=== PATIENT | female | born 1940 | race Caucasian/White ===

== ENCOUNTER 2019-01-28 21:06 | Inpatient (IN) | payer MEDICARE ==
[~2019-01-28] VITALS: Ht 172.7 cm; Wt 66.1 kg
[2019-01-28] MEDS ORDERED: NITROGLYCERIN SINGLE TAB 0.4 MG SL PRN (21:30)
[2019-01-28] MEDS ORDERED: SODIUM CHLORIDE FLUSH 10ML SYR IVF ONE (21:30)
[2019-01-28] MEDS ORDERED: ASPIRIN 81 MG TABLET CHEW ONE (21:30)
[2019-01-28] MEDS ORDERED: ASPIRIN 81 MG TABLET CHEW PO ONE (21:30)
[2019-01-28] MEDS ORDERED: NITROGLYCERIN SINGLE TAB 0.4 MG SL ONE (21:30)
[2019-01-28] MEDS ORDERED: ASPI-496 PO (21:35)
--- NOTE | 2019-01-28 21:35 | NUR ---
Pt medicated with asa and 1 tab nitro for chest pain and pain radiating to left arm. Pt VSS and will cont to monitor.
[2019-01-28 21:39] LABS: MEAN CORPUSCULAR HEMOGLOBIN 32.5 pg (27.0-34.8); MEAN CORPUSCULAR HGB CONC 31.8 g/dL (32.4-35.8); MEAN CORPUSCULAR VOLUME 102.2 fL (80-100); MEAN PLATELET VOLUME 7.2 fL (7.4-10.4); PLATELET COUNT 372 x10^3/uL (130-400)
[2019-01-28] MEDS ORDERED: ONDANSETRON 2MG/ML, 2ML ONE (21:40)
[2019-01-28 21:47] LABS: INTERNATIONAL NORMALIZED RATIO 0.98 (0.93-1.1); PROTHROMBIN TIME 10.3 Seconds (9.6-11.5)
[2019-01-28 21:49] LABS: ALANINE AMINOTRANSFERASE 22 U/L (12-78); ANION GAP 10 mmol/L (5-15); CALCIUM 9.8 mg/dL (8.5-10.1); CHLORIDE 109 mmol/L (98-107); CREATININE 1.89 mg/dL (0.55-1.02)
[2019-01-28 21:53] LABS: ALKALINE PHOSPHATASE 107 U/L (45-117); BILIRUBIN,TOTAL 0.5 mg/dL (0.2-1.0); TOTAL PROTEIN 7.9 g/dL (6.4-8.2)
[2019-01-28] MEDS ORDERED: MORPHINE SULFATE 4 MG/ML, 1ML IVPush ONE (22:00)
[2019-01-28] MEDS ORDERED: ONDANSETRON 2MG/ML, 2ML IVPush ONE (22:00)
[2019-01-28 22:01] LABS: BASOPHILS % (AUTO) 1 % (0-1); EOSINOPHILS # (AUTO) 0.41 x10^3/uL (0-0.4); EOSINOPHILS % (AUTO) 2 % (1-7); LYMPHOCYTES # (AUTO) 2.72 x10^3/uL (1-3.4); LYMPHOCYTES % (AUTO) 13 % (22-44); MD SCAN; MONOCYTES # (AUTO) 1.32 x10^3/uL (0.2-0.8); MONOCYTES % (AUTO) 6 % (2-9); NEUTROPHILS # (AUTO) 16.33 x10^3/uL (1.8-6.8); NEUTROPHILS % (AUTO) 78 % (42-75)
[2019-01-28] MEDS ORDERED: MORPHINE SULFATE 4 MG/ML, 1ML ONE (22:08)
[2019-01-28] MEDS ORDERED: HEPARIN 5,000 UNITS/ML, 1ML ONE (22:19)
[2019-01-28] MEDS ORDERED: HEPARIN 25,000 UNITS/500ML PMX 500 ML ONE (22:19)
[2019-01-28] MEDS: HEPARIN 25,000 UNITS/500ML PMX 500 ML IV PRN (22:29)
[2019-01-28] MEDS ORDERED: HEPARIN 5,000 UNITS/ML, 1ML IV ONE (22:30)
[2019-01-28] MEDS ORDERED: HEPARIN 5,000 UNITS/ML, 1ML IV PRN (22:30)
--- NOTE | 2019-01-28 22:33 | NUR ---
HEPARIN VERIFIED WITH CARYN RN, INFUSING PER PROTOCOL, IV PUSH PER PROTOCOL.
[2019-01-28] MEDS ORDERED: LABETALOL 5MG/ML, 20ML ONE (22:57)
[2019-01-28] MEDS ORDERED: LABETALOL 5MG/ML, 20ML IVPush ONE ×2 (23:00→23:30)
[2019-01-28] MEDS ORDERED: morphine SULFATE 10 MG/ML, 1ML IVPush PRN (23:00)
[2019-01-28] MEDS ORDERED: LISINOPRIL 10 MG TABLET PO ONE (23:00)
[2019-01-28] MEDS ORDERED: hydrALAzine 20 MG/ML, 1ML IVPush PRN (23:00)
--- NOTE | 2019-01-28 23:03 | NUR ---
PT RESTING ON GURNEY, CONT C/O MILD CHEST PRESSURE. PT REFUSES ADDITIONAL MORPHINE AT THIS TIME.
[2019-01-28] MEDS ORDERED: MV-M1TAB35 PO (23:55)
[2019-01-29 00:02] VITALS: BP 145/79
[2019-01-29] MEDS: ATORVASTATIN 80 MG TABLET PO SCH ×2 (00:32→20:36)
[2019-01-29] MEDS: SODIUM CHLORIDE 0.9% 1,000 ML IV SCH ×2 (00:32→12:43)
[2019-01-29 01:29] VITALS: BP 122/71
[2019-01-29 05:45] LABS: MEAN CORPUSCULAR HEMOGLOBIN 32.9 pg (27.0-34.8); MEAN CORPUSCULAR HGB CONC 32.2 g/dL (32.4-35.8); MEAN CORPUSCULAR VOLUME 101.9 fL (80-100); MEAN PLATELET VOLUME 7.3 fL (7.4-10.4); PLATELET COUNT 328 x10^3/uL (130-400); RED BLOOD COUNT 3.58 x10^6/uL (3.82-5.3); RED CELL DISTRIBUTION WIDTH 13.7 % (9.6-15.2)
[2019-01-29 05:49] LABS: ALBUMIN 3.4 g/dL (3.4-5.0); ANION GAP 7 mmol/L (5-15); CALCIUM 9.2 mg/dL (8.5-10.1); CHLORIDE 112 mmol/L (98-107)
[2019-01-29 05:55] LABS: ALANINE AMINOTRANSFERASE 32 U/L (12-78); ALKALINE PHOSPHATASE 90 U/L (45-117); BILIRUBIN,TOTAL 0.4 mg/dL (0.2-1.0); CHOL/HDL RATIO 2.5; CHOLESTEROL, TOTAL 154 mg/dL (140-239); HDL CHOL % 40 % (28-40); HDL CHOLESTEROL (DIRECT) 62 mg/dL (40-60); LDL CHOLESTEROL,CALCULATED 82 mg/dL (54-169); LDL/HDL RATIO 1.3 (0.5-3.0); TOTAL PROTEIN 6.7 g/dL (6.4-8.2); TRIGLYCERIDES 49 mg/dL (50-200); VLDL CHOLESTEROL 10 mg/dL (0-25)
[2019-01-29 06:16] LABS: BASOPHILS # (AUTO) 0.08 x10^3/uL (0-0.1); BASOPHILS % (AUTO) 1 % (0-1); EOSINOPHILS # (AUTO) 0.03 x10^3/uL (0-0.4); EOSINOPHILS % (AUTO) 0 % (1-7); LYMPHOCYTES # (AUTO) 2.53 x10^3/uL (1-3.4); LYMPHOCYTES % (AUTO) 15 % (22-44); MD SCAN; MONOCYTES # (AUTO) 1.18 x10^3/uL (0.2-0.8); MONOCYTES % (AUTO) 7 % (2-9); NEUTROPHILS # (AUTO) 12.75 x10^3/uL (1.8-6.8); NEUTROPHILS % (AUTO) 77 % (42-75)
[2019-01-29] MEDS: ASPIRIN 325 MG TABLET EC PO SCH (06:46)
[2019-01-29 07:34] VITALS: BP 107/63
[2019-01-29] MEDS ORDERED: METOPROLOL TARTRATE 25 MG TABLET PO SCH (09:00)
[2019-01-29 12:19] VITALS: BP 104/58
[2019-01-29] MEDS: CARVEDILOL 6.25 MG TABLET PO SCH (18:31)
[2019-01-29 20:37] VITALS: BP 119/71
[2019-01-30 02:00] VITALS: BP 113/59
[2019-01-30 04:39] LABS: MICROSCOPIC NOT IND
[2019-01-30 04:43] LABS: CULTURE INDICATED? NO
[2019-01-30] MEDS: HEPARIN 25,000 UNITS/500ML PMX 500 ML IV PRN (04:43)
[2019-01-30] MEDS: CARVEDILOL 6.25 MG TABLET PO SCH ×2 (05:35→18:50)
[2019-01-30] MEDS: ASPIRIN 325 MG TABLET EC PO SCH (05:35)
[2019-01-30 06:10] LABS: ALBUMIN 2.9 g/dL (3.4-5.0); CHLORIDE 114 mmol/L (98-107)
[2019-01-30 06:19] LABS: ALANINE AMINOTRANSFERASE 75 U/L (12-78); ALKALINE PHOSPHATASE 103 U/L (45-117); ANION GAP 9 mmol/L (5-15); BILIRUBIN,TOTAL 0.4 mg/dL (0.2-1.0); CALCIUM 8.7 mg/dL (8.5-10.1); CREATININE 1.43 mg/dL (0.55-1.02); TOTAL PROTEIN 6.1 g/dL (6.4-8.2)
[2019-01-30 06:39] LABS: BASOPHILS # (AUTO) 0.06 x10^3/uL (0-0.1); BASOPHILS % (AUTO) 1 % (0-1); EOSINOPHILS # (AUTO) 0.41 x10^3/uL (0-0.4); EOSINOPHILS % (AUTO) 5 % (1-7); LYMPHOCYTES # (AUTO) 3.92 x10^3/uL (1-3.4); LYMPHOCYTES % (AUTO) 44 % (22-44); MD NO; MEAN CORPUSCULAR HEMOGLOBIN 32.5 pg (27.0-34.8); MEAN CORPUSCULAR HGB CONC 31.7 g/dL (32.4-35.8); MEAN CORPUSCULAR VOLUME 102.5 fL (80-100); MEAN PLATELET VOLUME 7.7 fL (7.4-10.4); MONOCYTES # (AUTO) 0.95 x10^3/uL (0.2-0.8); MONOCYTES % (AUTO) 11 % (2-9); NEUTROPHILS # (AUTO) 3.49 x10^3/uL (1.8-6.8); NEUTROPHILS % (AUTO) 40 % (42-75); PLATELET COUNT 289 x10^3/uL (130-400); RED BLOOD COUNT 3.27 x10^6/uL (3.82-5.3); RED CELL DISTRIBUTION WIDTH 14.2 % (9.6-15.2)
[2019-01-30 09:07] VITALS: BP 123/68
[2019-01-30] MEDS ORDERED: SODIUM CHLORIDE 0.9% 1,000 ML IV SCH (10:00)
[2019-01-30 12:29] VITALS: BP 119/68
[2019-01-30] MEDS ORDERED: TICAGRELOR 90 MG TABLET ONE (15:21)
[2019-01-30] MEDS ORDERED: FENTANYL PF 100 MCG/2ML ONE (15:21)
[2019-01-30] MEDS ORDERED: HEPARIN 1,000 UNITS/ML, 10ML ONE (15:21)
[2019-01-30] MEDS ORDERED: BIVALIRUDIN 250 MG ONE (15:21)
[2019-01-30] MEDS ORDERED: NITROGLYCERIN 5 MG/ML, 10ML ONE (15:21)
[2019-01-30] MEDS ORDERED: LIDOCAINE 2%, 20ML ONE (15:21)
[2019-01-30] MEDS ORDERED: VERAPAMIL 2.5 MG/ML, 2ML ONE (15:21)
[2019-01-30] MEDS ORDERED: MIDAZOLAM 1 MG/ML, 5ML ONE (15:21)
[2019-01-30] MEDS: SODIUM CHLORIDE 0.9% 1,000 ML IV SCH (16:20)
[2019-01-30 20:28] VITALS: BP 134/67
[2019-01-30] MEDS: ATORVASTATIN 80 MG TABLET PO SCH (21:17)
[2019-01-31] MEDS: SODIUM CHLORIDE 0.9% 1,000 ML IV SCH (00:11)
[2019-01-31 02:00] VITALS: BP 126/67
[2019-01-31 05:06] LABS: BASOPHILS # (AUTO) 0.04 x10^3/uL (0-0.1); BASOPHILS % (AUTO) 1 % (0-1); EOSINOPHILS # (AUTO) 0.38 x10^3/uL (0-0.4); EOSINOPHILS % (AUTO) 5 % (1-7); LYMPHOCYTES # (AUTO) 2.56 x10^3/uL (1-3.4); LYMPHOCYTES % (AUTO) 32 % (22-44); MD NO; MEAN CORPUSCULAR HEMOGLOBIN 32.7 pg (27.0-34.8); MEAN CORPUSCULAR HGB CONC 31.9 g/dL (32.4-35.8); MEAN CORPUSCULAR VOLUME 102.3 fL (80-100); MEAN PLATELET VOLUME 7.4 fL (7.4-10.4); MONOCYTES # (AUTO) 0.93 x10^3/uL (0.2-0.8); MONOCYTES % (AUTO) 11 % (2-9); NEUTROPHILS # (AUTO) 4.21 x10^3/uL (1.8-6.8); NEUTROPHILS % (AUTO) 52 % (42-75); PLATELET COUNT 277 x10^3/uL (130-400); RED BLOOD COUNT 3.29 x10^6/uL (3.82-5.3); RED CELL DISTRIBUTION WIDTH 14.4 % (9.6-15.2)
[2019-01-31 05:15] LABS: ALBUMIN 3.2 g/dL (3.4-5.0); ANION GAP 5 mmol/L (5-15); CALCIUM 9.1 mg/dL (8.5-10.1); CHLORIDE 116 mmol/L (98-107)
[2019-01-31 05:19] LABS: ALANINE AMINOTRANSFERASE 94 U/L (12-78); ALKALINE PHOSPHATASE 113 U/L (45-117); BILIRUBIN,TOTAL 0.5 mg/dL (0.2-1.0); CREATININE 1.35 mg/dL (0.55-1.02); TOTAL PROTEIN 6.2 g/dL (6.4-8.2)
[2019-01-31] MEDS: CARVEDILOL 6.25 MG TABLET PO SCH (05:52)
[2019-01-31] MEDS: ASPIRIN 325 MG TABLET EC PO SCH (05:52)
[2019-01-31 07:00] VITALS: BP 122/61
[2019-01-31] MEDS ORDERED: LISINOPRIL 5 MG TABLET PO SCH (10:30)
[2019-01-31] MEDS ORDERED: CLOPIDOGREL 75 MG TABLET PO SCH (10:30)
[2019-01-31 13:01] VITALS: BP 121/76
[2019-01-31] MEDS ORDERED: ATOR-2 PO (14:12)
[2019-01-31] MEDS ORDERED: CARV6.2512 PO (14:12)
[2019-01-31] MEDS ORDERED: CLOP75TA PO (14:12)
[2019-01-31] MEDS ORDERED: LISI5TAB7 PO (14:12)
[2019-01-31] MEDS ORDERED: FURO-93 PO (14:13)
== END 2019-01-31 14:58 | disposition home or self-care (01) | DRG 280 ==
LOC: ED 21:58 → EDIP 23:19 → 5SO 23:35 → DCLOUNGE 01-31 14:58
PROVIDERS: ADMIT Family Medicine; ATTEND Family Medicine
PROC: 4A023N7 Measurement of Cardiac Sampling and Pressure, Left Heart, Percutaneous Approach (ICD-10-PCS; principal; 2019-01-30)
PROC: B2111ZZ Fluoroscopy of Multiple Coronary Arteries using Low Osmolar Contrast (ICD-10-PCS; 2019-01-30)
PROC: B2151ZZ Fluoroscopy of Left Heart using Low Osmolar Contrast (ICD-10-PCS; 2019-01-30)
DX: I21.4 Non-ST elevation (NSTEMI) myocardial infarction (principal); N17.0 Acute kidney failure with tubular necrosis; I42.9 Cardiomyopathy, unspecified; D72.829 Elevated white blood cell count, unspecified; E78.5 Hyperlipidemia, unspecified; I10 Essential (primary) hypertension; I25.10 Atherosclerotic heart disease of native coronary artery without angina pectoris; Z79.02 Long term (current) use of antithrombotics/antiplatelets; Z79.82 Long term (current) use of aspirin; Z88.0 Allergy status to penicillin; Z87.891 Personal history of nicotine dependence; Z90.710 Acquired absence of both cervix and uterus
CPT/HCPCS: 36415; 71045; 80053; 80061; 81003; 84484; 85025; 85520; 85610; 85730; 93005; 93306; 93458; 96374; 96375; 99156; 99291; C1769; C1894; G0378; J0583; J1644; J2250; J2405; J3010; 92523-GN; J2270; J7030; Q9967